=== PATIENT | female | born 1975 | race Caucasian/White ===

== ENCOUNTER → 2020-03-12 | Outpatient (CLI) | payer OTHER ==
[~2020-03-12] MED LIST: ASPI-515 PO; DIPH50CA62 PO; PREN1TAB62 PO
== END | disposition home or self-care (01) ==
LOC: STAR 12:17
PROVIDERS: ATTEND Obstetrics & Gynecology
DX: Z01.812 Encounter for preprocedural laboratory examination (principal); Z20.828 Contact with and (suspected) exposure to other viral communicable diseases
CPT/HCPCS: 36415; 87635

== ENCOUNTER 2020-03-17 06:13 | Inpatient (IN) | payer OTHER ==
[~2020-03-17] VITALS: Ht 170.2 cm; Wt 74.0 kg
[2020-03-17] MEDS ORDERED: OXYTOCIN 30U/ 0.9% NaCL 500ML 500 ML IV ONE (06:19)
[2020-03-17] MEDS ORDERED: D5%-LACTATED RINGERS 1,000 ML IV SCH (06:19)
[2020-03-17] MEDS ORDERED: ASPI-515 PO (06:25)
[2020-03-17] MEDS ORDERED: DIPH50CA62 PO (06:26)
[2020-03-17] MEDS ORDERED: PREN1TAB62 PO (06:26)
[2020-03-17 06:27] VITALS: BP 122/70
[2020-03-17] MEDS ORDERED: FENTANYL PF 100 MCG/2ML IVPush PRN (06:30)
[2020-03-17] MEDS ORDERED: FENTANYL PF 100 MCG/2ML IV PRN (06:30)
[2020-03-17] MEDS ORDERED: ONDANSETRON 2MG/ML, 2ML IVPush PRN (06:30)
[2020-03-17] MEDS ORDERED: TERBUTALINE 1 MG/ML, 1ML SQ PRN (06:30)
[2020-03-17] MEDS ORDERED: CALCIUM CARBONATE 500 MG TAB.CHEW PO PRN (06:30)
[2020-03-17] MEDS ORDERED: TERBUTALINE 1 MG/ML, 1ML IVPush PRN (06:30)
[2020-03-17] MEDS: LACTATED RINGERS 1,000 ML IV SCH ×3 (06:50→16:25)
[2020-03-17] MEDS ORDERED: OXYTOCIN 30U/ 0.9% NaCL 500ML 500 ML ONE ×2 (06:56→15:10)
[2020-03-17] MEDS ORDERED: LIDOCAINE 1%, 20ML ONE (06:56)
[2020-03-17] MEDS ORDERED: MISOPROSTOL 200 MCG TABLET ONE (06:56)
[2020-03-17] MEDS ORDERED: OXYTOCIN 30U/ 0.9% NaCL 500ML 500 ML IV PRN (07:10)
[2020-03-17 07:16] LABS: BASOPHILS # (AUTO) 0.02 x10^3/uL (0-0.1); BASOPHILS % (AUTO) 0 % (0-1); EOSINOPHILS # (AUTO) 0.28 x10^3/uL (0-0.4); EOSINOPHILS % (AUTO) 3 % (1-7); LYMPHOCYTES # (AUTO) 1.14 x10^3/uL (1-3.4); LYMPHOCYTES % (AUTO) 12 % (22-44); MD NO; MEAN CORPUSCULAR HEMOGLOBIN 28.9 pg (27.0-34.8); MEAN PLATELET VOLUME 10.3 fL (7.4-10.4); MONOCYTES % (AUTO) 7 % (2-9); NEUTROPHILS # (AUTO) 7.74 x10^3/uL (1.8-6.8); NEUTROPHILS % (AUTO) 78 % (42-75); PLATELET COUNT 176 x10^3/uL (130-400); RED BLOOD COUNT 4.29 x10^6/uL (3.82-5.3)
[2020-03-17] MEDS ORDERED: NEWBORN KIT ONE (07:37)
[2020-03-17] MEDS ORDERED: MISOPROSTOL 25 MCG TABLET VG PRN (10:30)
[2020-03-17] MEDS ORDERED: MISOPROSTOL 25 MCG TABLET ONE ×2 (10:59→23:36)
[2020-03-17] MEDS ORDERED: FENTANYL/BUPIV./NS/PF 250 ML EPIDCONT ONE (16:07)
[2020-03-17] MEDS ORDERED: FENTANYL PF 100 MCG/2ML ONE ×2 (16:07→23:45)
[2020-03-17] MEDS ORDERED: BUPIVACAINE 0.25% ONE (16:07)
[2020-03-17] MEDS ORDERED: TERBUTALINE 1 MG/ML, 1ML ONE (19:20)
[2020-03-17] MEDS ORDERED: ONDANSETRON 2MG/ML, 2ML ONE (19:48)
[2020-03-18] MEDS ORDERED: ONDANSETRON 2MG/ML, 2ML ONE (04:45)
[2020-03-18] MEDS ORDERED: EPHEDRINE 50 MG/ML, 1ML ONE (04:58)
[2020-03-18] MEDS: OXYTOCIN 30U/ 0.9% NaCL 500ML 500 ML IV SCH ×2 (06:27→16:27)
[2020-03-18] MEDS ORDERED: METHYLERGONOVINE 0.2 MG/ML IM PRN (06:30)
[2020-03-18] MEDS ORDERED: DIPH,PERTUSS(ACELL),TET VAC/PF NC IM-VACC PRN (06:30)
[2020-03-18] MEDS ORDERED: MISOPROSTOL 200 MCG TABLET PR PRN (06:30)
[2020-03-18] MEDS ORDERED: SIMETHICONE 80 MG CHEW TAB PO PRN (06:30)
[2020-03-18] MEDS ORDERED: CARBOPROST TROMETHAMINE 250 MCG/ML, 1ML IM PRN (06:30)
[2020-03-18] MEDS ORDERED: ACETAMINOPHEN 325 MG TABLET PO PRN ×2 (06:30)
[2020-03-18] MEDS ORDERED: OXYTOCIN 30U/ 0.9% NaCL 500ML 500 ML IV PRN (07:10)
[2020-03-18] MEDS: LACTATED RINGERS 1,000 ML IV SCH ×2 (08:28→16:28)
[2020-03-18] MEDS ORDERED: EPHEDRINE 50 MG/ML, 1ML IVPush PRN (08:30)
[2020-03-18] MEDS ORDERED: LACTATED RINGERS 1,000 ML IVBOLUS PRN (08:30)
[2020-03-18] MEDS ORDERED: OXYcodone/APAP 5/325MG TABLET ONE (09:01)
[2020-03-18] MEDS: OXYcodone/APAP 5/325MG TABLET PO PRN ×4 (09:03→19:59)
[2020-03-18 09:30] VITALS: BP 112/74
[2020-03-18] MEDS: PRENATAL VIT/IRON/FA 1 EACH TABLET PO SCH (09:37)
[2020-03-18 12:48] VITALS: BP 111/76
[2020-03-18] MEDS: IBUPROFEN 600 MG TABLET PO PRN ×2 (13:41→19:59)
[2020-03-18 14:27] LABS: BASOPHILS % (AUTO) 0 % (0-1); EOSINOPHILS # (AUTO) 0.09 x10^3/uL (0-0.4); EOSINOPHILS % (AUTO) 1 % (1-7); LYMPHOCYTES # (AUTO) 0.93 x10^3/uL (1-3.4); LYMPHOCYTES % (AUTO) 6 % (22-44); MD NO; MEAN CORPUSCULAR HEMOGLOBIN 29.2 pg (27.0-34.8); MEAN CORPUSCULAR HGB CONC 33.3 g/dL (32.4-35.8); MEAN PLATELET VOLUME 9.5 fL (7.4-10.4); MONOCYTES # (AUTO) 0.41 x10^3/uL (0.2-0.8); MONOCYTES % (AUTO) 3 % (2-9); NEUTROPHILS # (AUTO) 13.16 x10^3/uL (1.8-6.8); NEUTROPHILS % (AUTO) 90 % (42-75); PLATELET COUNT 160 x10^3/uL (130-400); RED BLOOD COUNT 3.76 x10^6/uL (3.82-5.3); RED CELL DISTRIBUTION WIDTH 13.2 % (9.6-15.2)
[2020-03-18 17:30] VITALS: BP 105/68
[2020-03-18 19:40] VITALS: BP 102/66
[2020-03-18] MEDS: DOCUSATE 100 MG CAPSULE PO PRN (19:59)
[2020-03-19 00:10] VITALS: BP 96/58
[2020-03-19] MEDS: LACTATED RINGERS 1,000 ML IV SCH (00:28)
[2020-03-19] MEDS: OXYcodone/APAP 5/325MG TABLET PO PRN ×4 (01:43→14:32)
[2020-03-19] MEDS: IBUPROFEN 600 MG TABLET PO PRN ×3 (01:43→14:28)
[2020-03-19] MEDS: OXYTOCIN 30U/ 0.9% NaCL 500ML 500 ML IV SCH (02:27)
[2020-03-19 05:30] VITALS: BP 101/65
[2020-03-19 07:15] VITALS: BP 110/74
[2020-03-19] MEDS: DOCUSATE 100 MG CAPSULE PO PRN (08:02)
[2020-03-19] MEDS: PRENATAL VIT/IRON/FA 1 EACH TABLET PO SCH (08:02)
[2020-03-19] MEDS ORDERED: OXYC-302 PO (13:19)
[2020-03-19] MEDS ORDERED: IBUP-1222 PO (13:19)
== END 2020-03-19 16:15 | disposition home or self-care (01) | DRG 807 ==
LOC: LDIP 06:13 → 2NW 03-18 08:50
PROVIDERS: ADMIT Obstetrics & Gynecology Maternal & Fetal Medicine; ATTEND Obstetrics & Gynecology Maternal & Fetal Medicine
PROC: 10E0XZZ Delivery of Products of Conception, External Approach (ICD-10-PCS; principal; 2020-03-18)
PROC: 0HQ9XZZ Repair Perineum Skin, External Approach (ICD-10-PCS; 2020-03-18)
DX: O24.420 Gestational diabetes mellitus in childbirth, diet controlled (principal); Z37.0 Single live birth; O70.0 First degree perineal laceration during delivery; Z3A.39 39 weeks gestation of pregnancy
CPT/HCPCS: 36415; J7121; 82962; 85025; 86592; 86850; 86900; G0378; J2405; J3010; J3490; J2590; J7120

== ENCOUNTER 2020-05-28 13:39 | Day surgery (SDC) | payer OTHER ==
[2020-05-25 13:39] LABS: BASOPHILS % (AUTO) 1 % (0-1); EOSINOPHILS % (AUTO) 4 % (1-7); LYMPHOCYTES % (AUTO) 26 % (22-44); MEAN CORPUSCULAR HEMOGLOBIN 28.5 pg (27.0-34.8); MEAN CORPUSCULAR HGB CONC 34.2 g/dL (32.4-35.8); MEAN PLATELET VOLUME 8.9 fL (7.4-10.4); MONOCYTES % (AUTO) 5 % (2-9); NEUTROPHILS % (AUTO) 64 % (42-75); PLATELET COUNT 281 x10^3/uL (130-400); RED BLOOD COUNT 5.11 x10^6/uL (3.82-5.3); RED CELL DISTRIBUTION WIDTH 13.4 % (9.6-15.2)
[2020-05-25 13:40] LABS: MD NO
[2020-05-25 13:43] LABS: ANION GAP 9 mmol/L (5-15); CALCIUM 9.3 mg/dL (8.5-10.1); CHLORIDE 109 mmol/L (98-107)
[2020-05-25 13:51] LABS: CREATININE 1.01 mg/dL (0.55-1.02)
[~2020-05-28] VITALS: Ht 170.2 cm; Wt 66.0 kg
[~2020-05-28 13:39] MED LIST changes: +DOXY25TA18 PO; +IBUP-1222 PO; +OXYC-302 PO
[2020-05-28] MEDS ORDERED: CHLORHEXIDINE 15 ML UDC MM STA (14:09)
[2020-05-28] MEDS ORDERED: LACTATED RINGERS 1,000 ML IV ONE (14:09)
[2020-05-28 14:26] VITALS: BP 128/87
[2020-05-28] MEDS ORDERED: ACETAMINOPHEN 500 MG TABLET PO STA (14:57)
[2020-05-28] MEDS ORDERED: SCOPOLAMINE 1MG PATCH TD SCH (14:57)
[2020-05-28] MEDS ORDERED: SCOPOLAMINE 1MG PATCH TD ONE (14:58)
[2020-05-28] MEDS ORDERED: ACETAMINOPHEN 500 MG TABLET ONE (14:59)
[2020-05-28] MEDS ORDERED: FENTANYL PF 250 MCG/5ML ONE (15:02)
[2020-05-28] MEDS ORDERED: MIDAZOLAM 1 MG/ML, 2ML ONE (15:02)
[2020-05-28] MEDS ORDERED: DEXAMETHASONE 4 MG/ML, 1ML ONE (15:05)
[2020-05-28] MEDS ORDERED: BUPIVACAINE/PF 0.25% ONE (15:14)
[2020-05-28] MEDS ORDERED: EPINEPHRINE 1 MG/ML, 1ML ONE (15:14)
[2020-05-28] MEDS ORDERED: NEOSPORIN OINT, 15GM ONE (15:28)
[2020-05-28] MEDS ORDERED: hydrALAzine 20 MG/ML, 1ML IV PRN (16:30)
[2020-05-28] MEDS ORDERED: LABETALOL 5MG/ML, 20ML IV PRN (16:30)
[2020-05-28] MEDS ORDERED: EPHEDRINE 50 MG/ML, 1ML IVPush PRN (16:30)
[2020-05-28] MEDS ORDERED: ALBUTEROL SULFATE 2.5 MG/3 ML NPPB PRN (16:30)
[2020-05-28] MEDS ORDERED: PROMETHAZINE 25 MG/ML, 1ML IVPush PRN (16:30)
[2020-05-28] MEDS ORDERED: MEPERIDINE/PF 25MG/0.5ML IVPush PRN (16:30)
[2020-05-28] MEDS ORDERED: OXYcodone 5 MG/5 ML ORAL.SOL UDC PO PRN (16:30)
[2020-05-28] MEDS ORDERED: HYDROmorphone 1 MG/ML, 1ML INJ IVPush PRN (16:30)
[2020-05-28] MEDS ORDERED: DIPHENHYDRAMINE 50 MG/ML, 1ML IVPush PRN (16:30)
[2020-05-28] MEDS ORDERED: DIAZEPAM 5 MG/ML, 2ML IVPush PRN (16:30)
[2020-05-28] MEDS ORDERED: PROMETHAZINE 12.5 MG SUPP PR PRN (16:30)
[2020-05-28] MEDS ORDERED: FENTANYL PF 100 MCG/2ML IV PRN (16:30)
[2020-05-28] MEDS ORDERED: ONDANSETRON 2MG/ML, 2ML IVPush PRN (16:30)
[2020-05-28] MEDS ORDERED: MIDAZOLAM 1 MG/ML, 2ML IV PRN (16:30)
[2020-05-28] MEDS ORDERED: HYDROcodone/APAP 7.5-325MG/15ML UDC ONE (17:30)
[2020-05-28] MEDS ORDERED: MEPERIDINE/PF 25MG/ML,1ML ONE (17:41)
[2020-05-28] MEDS ORDERED: HYDROcodone/APAP 7.5-325MG/15ML UDC PO PRN (18:00)
== END 2020-05-28 19:30 | disposition home or self-care (01) ==
LOC: OR 13:39
PROVIDERS: ATTEND Obstetrics & Gynecology Maternal & Fetal Medicine
DX: Z30.2 Encounter for sterilization (principal); Z30.430 Encounter for insertion of intrauterine contraceptive device; G43.829 Menstrual migraine, not intractable, without status migrainosus; N94.6 Dysmenorrhea, unspecified; Z20.828 Contact with and (suspected) exposure to other viral communicable diseases; Z79.899 Other long term (current) drug therapy
CPT/HCPCS: 36415; 58300; 58670; 71046; 80048; 81025; 84702; 85025; 87635; 88302; 93005; J0171; J1100; J2175; J2250; J3010; J7120; J7298